=== PATIENT | female | born 1955 | race Hispanic/Latino ===

== ENCOUNTER 2016-08-07 13:11 | Emergency (ER) | payer OTHER ==
--- NOTE | 2016-08-07 14:00 | C.PDOC ---
History Of Present Illness Patient is a 60 y/o female, whose PMHx includes rheumatoid arthritis, and bilateral hip replacement, presents to the ED for evaluation of midline lower back pain for the past several years. Pt has no history of prior imaging, and denies being seen anytime recently by a a r specialist. As per [facility], patient has been taking oxycodone for a long time, last picked up 60 tablets of 30mg of oxycodone on 07/20/16. Pt states she ran out of oxycodone 2 days ago, and notes that her pain was worse than usual due to the wet weather for the past few days. Pt notes taking Tylenol with benadryl at home for the exacerbation of her chronic pain without any improvement. Otherwise, denies any trauma, fall, lower extremity weakness/numbness, tingling sensation, saddle anesthesia, nausea, vomiting, abdominal pain, bowel/bladder disfunction, fever, or any other associated symptoms at this time. pt gets medications from her PMD, or from pain mgmt Dr Cruz, but no longer seeing her. Time Seen by Provider: 08/07/16 13:35 Chief Complaint (Nursing): Back Pain History Per: Patient History/Exam Limitations: no limitations Onset/Duration Of Symptoms: Days Current Symptoms Are (Timing): Still Present Quality Of Discomfort: "Pain" Previous Symptoms: Back Pain, Chronic Pain Associated Symptoms: None. denies: Incontinence, New Weakness, New Numbness Exacerbating Factor(s): Movement Recent travel outside of the [place]: No Additional History Per: Patient Past Medical History Reviewed: Historical Data, Nursing Documentation, Vital Signs Vital Signs: Last Vital Signs Temp 98.3 F 08/07/16 14:40 Pulse 98 H 08/07/16 14:40 Resp 18 08/07/16 14:40 BP 102/65 08/07/16 14:40 Pulse Ox 100 08/07/16 20:57 - Medical History PMH: Rheumatoid Arthritis Denies: Chronic Kidney Disease - [facility] Procedures ANGIOPLASTY OF OTHER NON-CORONARY VESSEL(S) (07/03/14) ATHERECTOMY OF OTHER NON-CORONARY VESSEL(S) (07/03/14) CONTRAST ARTERIOGRAM-LEG (07/03/14) INSEJ [id number] PERIPHERAL NON-CORONARY VES STENT(S) (07/03/14) INSERTION OF ONE VASCULAR STENT (07/03/14) PROCEDURE ON FOUR OR MORE VESSELS (07/03/14) Family History: States: Unknown Family Hx - Social History Hx Tobacco Use: Yes Hx Alcohol Use: No Hx Substance Use: No - Immunization History Hx Tetanus Toxoid Vaccination: No Hx Influenza Vaccination: No Hx Pneumococcal Vaccination: No Review Of Systems Constitutional: Negative for: Fever, Chills Gastrointestinal: Negative for: Nausea, Vomiting, Abdominal Pain, Diarrhea Genitourinary: Negative for: Dysuria, Incontinence Musculoskeletal: Positive for: Back Pain Neurological: Negative for: Weakness, Numbness Physical Exam - Physical Exam Appears: Non-toxic, Other (appears older than stated age, appears uncomfortable) Skin: Normal Color, Warm, Dry Head: Atraumatic, Normacephalic Neck: Normal ROM, No Midline Cervical Tenderness, Supple Chest: Symmetrical, No Tenderness Cardiovascular: Rhythm Regular, No Murmur Respiratory: Normal Breath Sounds, No Rales, No Rhonchi, No Wheezing Gastrointestinal/Abdominal: Soft, No Tenderness Back: No CVA Tenderness, Vertebral Tenderness (lumbar), No Paraspinal Tenderness Extremity: Normal ROM, No Tenderness, No Calf Tenderness, Capillary Refill (< 2 sec.), No Deformity, No Swelling, Other (ulnar deviation of the fingers consistent with rheumatoid arthritis) Extremity: Bilateral: Hips Non-Tender, Normal Color And Temperature, Normal ROM , Pelvis-Stable Neurological/Psych: Oriented x3, Normal Speech, Normal Cognition, Normal Motor, Normal Sensation ED Course And Treatment O2 Sat by Pulse Oximetry: 100 (on RA) Pulse Ox Interpretation: Normal Progress Note: LS spine x-ray ordered and reviewed; await official report. . Patient was treated with Toradol IM in the ED. On reassessment, patient reports improvement of back pain. Patient is ambulatory in the ED without any significant discomfort. Reevaluation Time: 15:15 Reassessment Condition: Improved Disposition - Disposition Disposition: ELOPEMENT - ER ONLY Disposition Time: 15:30 Condition: GOOD - Clinical Impression Clinical Impression: Chronic back pain - PA / TAWER / Resident Statement MD/DO has reviewed & agrees with the documentation as recorded. - Scribe Statement The provider has reviewed the documentation as recorded by the Husame Rahul Hernandez All medical record entries made by the Robertaibsravan were at my direction and personally dictated by me. I have reviewed the chart and agree that the record accurately reflects my personal performance of the history, physical exam, medical decision making, and the department course for this patient. I have also personally directed, reviewed, and agree with the discharge instructions and disposition.
[2016-08-07 14:43] VITALS: BP 102/65; PULSE 98; RESP 18; TEMP 98.3; O2SAT 100
--- NOTE | 2016-08-07 16:54 | RAD ---
PROCEDURE: Radiographs of the Lumbar Spine. HISTORY: midline tenderness COMPARISON: No prior. FINDINGS: BONES: Normal alignment. No listhesis. No fracture. DISC SPACES: Unremarkable. OTHER FINDINGS: Diffuse atherosclerotic disease. Left common iliac stent. Bilateral total hip replacement. . IMPRESSION: No evidence of acute fracture or subluxation at the lumbar spine.
== END 2016-08-07 15:31 | disposition left against medical advice (07) ==
LOC: C.ER 13:11
DX: G89.29 Other chronic pain (principal); M54.9 Dorsalgia, unspecified
CPT/HCPCS: 72100; 96372; 99283; J1885